=== PATIENT | male | born 1980 | race Caucasian/White ===

== ENCOUNTER 2017-03-03 08:09 | Emergency (ER) | payer OTHER ==
[~2017-03-03] VITALS: Ht 190.5 cm; Wt 93.0 kg
[~2017-03-03 08:09] MED LIST: CELE10TA PO; NO HOME MEDICATIONS
[2017-03-03 09:27] VITALS: BP 148/74
[2017-03-03] MEDS ORDERED: IBUP80TA PO (09:27)
[2017-03-03] MEDS ORDERED: CLIN1CAP5 PO (09:27)
[2017-03-03] MEDS ORDERED: IBUPROFEN 800 MG TAB PO ONE (09:30)
[2017-03-03] MEDS ORDERED: CLINDAMYCIN 150 MG CAP PO ONE (09:30)
== END 2017-03-03 09:37 | disposition home or self-care (01) ==
LOC: M ED 08:39
DX: K04.7 Periapical abscess without sinus (principal); K08.89 Other specified disorders of teeth and supporting structures; F17.200 Nicotine dependence, unspecified, uncomplicated

== ENCOUNTER 2018-01-28 21:28 | Emergency (ER) | payer OTHER | END 2018-01-28 22:54 | disposition home or self-care (01) | LOC: M ED 21:28 | DX: S60.222A Contusion of left hand, initial encounter (principal); W27.0XXA Contact with workbench tool, initial encounter; Y92.098 Other place in other non-institutional residence as the place of occurrence of the external cause | CPT/HCPCS: 73130 ==

== ENCOUNTER 2019-11-14 10:08 | Emergency (ER) | payer OTHER ==
[~2019-11-14] VITALS: Ht 190.5 cm; Wt 122.2 kg
[~2019-11-14 10:08] MED LIST changes: +CLIN150C14 PO; +IBUP-1022 PO; +IBUP80TA PO
[2019-11-14] MEDS ORDERED: cough and cold (10:18)
[2019-11-14] MEDS ORDERED: IBUP200T45 PO (10:18)
[2019-11-14 11:11] LABS: INFLUENZA A AMPLIFICATION POSITIVE (NEGATIVE); INFLUENZA B AMPLIFICATION NEGATIVE (NEGATIVE)
[2019-11-14] MEDS ORDERED: BENZ200C70 PO (11:25)
[2019-11-14] MEDS ORDERED: OSEL75CA PO (11:25)
[2019-11-14 11:33] VITALS: BP 124/57
== END 2019-11-14 11:36 | disposition home or self-care (01) ==
LOC: M ED 10:08
DX: J09.X2 Influenza due to identified novel influenza A virus with other respiratory manifestations (principal); F17.210 Nicotine dependence, cigarettes, uncomplicated

== ENCOUNTER → 2021-04-01 | Outpatient (CLI) | payer OTHER ==
[~2021-04-01] MED LIST changes: +BENZ200C70 PO; -CLIN150C14 PO; +CLIN150C15 PO; +IBUP200T45 PO; +OSEL75CA PO; +cough and cold
--- NOTE | 2021-04-01 13:42 | REP ---
INDICATION: PAIN IN LEFT WRIST, UNSP INJ OF BACK COMPARISON: None. TECHNIQUE: AP, lateral, and swimmers views. FINDINGS: Alignment and kyphosis is maintained. Vertebral bodies intact. No acute fracture / compression injury or subluxation. Mild age-related changes noted without overt degenerative spondylosis. Paravertebral soft tissues are normal. IMPRESSION: Normal age-appropriate thoracic spine series. <Electronically signed by Laz Mckoy > 04/01/21 [id number]
--- NOTE | 2021-04-01 13:43 | REP ---
INDICATION: PAIN IN LEFT WRIST, UNSP INJ OF BACK COMPARISON: None. TECHNIQUE: AP, lateral, bilateral oblique, and coned-down views of the lumbar spine. FINDINGS: Alignment and lordosis maintained. Vertebral bodies are intact. No acute fracture/compression injury or subluxation. No obvious spondylolysis or spondylolisthesis. Mild/moderate degenerative changes include elements of endplate sclerosis with marginal spurring and disc space narrowing at multiple levels. IMPRESSION: Mild multilevel degenerative changes. <Electronically signed by Laz Mckoy > 04/01/21 [id number]
--- NOTE | 2021-04-01 13:44 | REP ---
INDICATION: PAIN IN LEFT WRIST, UNSP INJ OF BACK COMPARISON: None. TECHNIQUE: AP, lateral, bilateral oblique views left wrist. FINDINGS: The carpal bones, surrounding osseous structures, soft tissues, and joint spaces are normal. There is no evidence for acute fracture or dislocation. No subcutaneous emphysema or radiodense foreign body. IMPRESSION: Normal wrist series. No acute fracture or dislocation. <Electronically signed by Laz Mckoy > 04/01/21 2008
--- NOTE | 2021-04-01 13:46 | REP ---
INDICATION: PAIN IN LEFT WRIST, UNSP INJ OF BACK. COMPARISON: None. TECHNIQUE: AP, lateral, flexion/extension, open mouth, bilateral oblique and swimmer's views of the cervical spine. FINDINGS: Alignment and lordosis maintained without acute fracture/compression injury or subluxation. Posterior elements and spinous processes are intact. Open mouth view demonstrates normal C1-C2 articulation and odontoid process. Focal advanced degenerative spondylosis at C5-6 and C6-7 includes marginal osteophytosis, endplate sclerosis, disc space narrowing and small posterior spurring. Remainder of the examination appears essentially age-appropriate. IMPRESSION: Focal advanced degenerative spondylosis at C5-6 and C6-7. <Electronically signed by Laz Mckoy > 04/01/21 [id number]
== END ==
LOC: M RAD 12:49
PROVIDERS: ATTEND Pediatrics
DX: M25.532 Pain in left wrist (principal)